=== PATIENT | female | born 1985 | race Caucasian/White ===

== ENCOUNTER 2016-12-22 06:30 | Inpatient (IN) ==
[2016-12-22] MEDS: LACTATED RINGERS 1,000 ML IV SCH ×2 (09:39→10:58)
[2016-12-22] MEDS ORDERED: CITRIC ACID/SODIUM CITRATE 30 ML UDCUP PO ONE (09:41)
[2016-12-22] MEDS ORDERED: ceFAZolin 2,000 MG in PREMIX 1 EACH IV ONE (09:41)
[2016-12-22] MEDS ORDERED: diphenhydrAMINE 50 MG/1 ML VIAL IV PRN (09:43)
[2016-12-22] MEDS ORDERED: PROMETHAZINE 25 MG/1 ML VIAL IM PRN (09:43)
[2016-12-22] MEDS ORDERED: FAMOTIDINE 20 MG/2 ML VIAL IV ONE (09:43)
[2016-12-22] MEDS ORDERED: hydrOXYzine HCL 25 MG/1 ML VIAL IM PRN (09:43)
[2016-12-22] MEDS ORDERED: CLINDAMYCIN INJ 900 MG in PREMIX 1 EACH IV ONE (09:44)
[2016-12-22 10:29] LABS: Basophils % 0.3 % (0.0-0.8); Eosinophils # 0.1 10*3/uL (0.0-0.87); Eosinophils % 0.4 % (0.00-10.9); Hematocrit 33.8 VOL% (35.7-47.0); Hemoglobin 12.2 GM/DL (12.0-16.0); Immature Granulocytes % 2.4 %; Immature Granulocytes Absolute 0.28 #; Lymphocytes # 3.2 10*3/uL (1.4-4.0); Mean Corpuscular HGB Conc 36.1 GM/DL (32-36); Mean Corpuscular Hemoglobin 32 PG (27-34); Mean Corpuscular Volume 88.3 FL (87-102); Mean Platelet Volume 11.4 FL (9.6-12.0); Monocytes # 0.6 10*3/uL (0.11-0.8); Monocytes % 5.2 % (1.7-12.7); Neutrophils # 7.6 10*3/uL (1.4-7.4); Neutrophils % 64.7 % (38.7-73.9); Platelet Count 181 T/CUMM (130-400); Red Blood Count 3.83 MC/CUMM (3.8-5.5); Red Cell Distribution Width 13.6 % (9.3-17.3); White Blood Count 11.8 T/CUMM (4-12)
[2016-12-22] MEDS ORDERED: OXYTOCIN/LR 20 UNIT/1,000 ML BAG IV ONE ×2 (10:52→12:02)
[2016-12-22 11:05] LABS: Alanine Aminotransferase 12 U/L (13-56); Albumin 3.1 G/DL (3.4-5.0); Alkaline Phosphatase 215 U/L (45-117); Aspartate Amino Transferase 18 U/L (0-37); Bilirubin,Total < 0.39 MG/DL (0.2-1.0); Blood Urea Nitrogen 6 MG/DL (7-18); Calcium 8.4 MG/DL (8.5-10.1); Glucose 80 MG/DL (74-106); Osmolality,Calculated 266.1 MOS/KG (273-304); Potassium 3.9 MMOL/L (3.5-5.1); Sodium 135 MMOL/L (136-145); Total Protein 6.2 G/DL (6.4-8.3)
--- NOTE | 2016-12-22 11:57 | OB/GYN History & Physical ---
History of Present Illness Chief complaint: 39 weeks previous elective repeat History of present illness: Ms. Kelley is a 31 year old female 2 para 1 at 39 weeks estimated gestational age previous 1 admitted for elective repeat . The risks benefits and alternatives were explained patient in detail and informed consent obtained and all her questions were answered to her satisfaction Home Medications Medication Instructions Recorded Confirmed Type Ferrous Sulfate [Iron] 325 mg PO DAILY 12/22/16 12/22/16 History Vit No.130/Iron/Folic 1 each PO DAILY 12/22/16 12/22/16 History [ Vitamins] Allergies Allergy/AdvReac Type Severity Reaction Status Date / Time Cefaclor [From Ceclor] Allergy Intermediate Unknown/Unable Verified 12/22/16 09: 40 to obtain 12 point system: reviewed and no additional remarkable complaints except as stated Medical,Surgical,& Family Hx - Medical History Neurology: No history of: Seizures Musculoskeletal: No history of: Amputation Reproductive: No history of: Ectopic , Complication - Surgical History Cardiac Surgeries: Patient Denies: Cardiac Catheterization HEENT Surgeries: Surgical HX of: Tonsilectomy & Adenoidectomy Abdominal Surgeries: Patient denies: Abdominal Surgery Reproductive Surgeries: Surgical HX of;: Section (2013) - Family History Family History: Reports;: Family Cancer (mgm), Family Diabetes (pgm, aunt), Family Stroke (gf) Denies;: Family Anesthesia Reaction, Family Heart Disease, Family Hematology , Family Hypertension, Family Psychiatric Problems - Social History Smoking Status: Former smoker Frequency of Alcohol Use: None Type of Drug Use: None Exam MAINTENANCE TEAM LEADER - Constitutional General appearance: normal weight, no acute distress - Head Head exam: Present: normal inspection, normocephalic, atraumatic - Eye Eye exam: Present: EOMI - Neck Neck exam: Present: normal inspection - Respiratory Respiratory exam: Present: clear to auscultation bilaterally - Breast Breasts: as per HPI Menstruation: as per HPI - Cardiovascular Cardiovascular exam: Present: regular rate and rhythm - GI/Abdominal GI/Abdominal exam: Present: normal bowel sounds - Extremities Exam Extremities exam: Present: normal inspection, normal capillary refill - Back Exam Back exam: Present: normal inspection - Neurological Exam Neurological exam: Present: alert, oriented X3 - Psychiatric Psychiatric exam: Present: normal affect, normal mood - Skin Skin exam: Present: normal color, warm Assessment and Plan (1) with 39 completed weeks gestation Status: Acute Current Visit: Yes (2) Previous section Status: Acute Current Visit: Yes Results - Labs CBC & BMP: 12/22/16 10:18 12/22/16 10:18
[2016-12-22] MEDS ORDERED: ACETAMINOPHEN 325 MG TABLET PO PRN (12:02)
[2016-12-22] MEDS ORDERED: HYDROCORTISONE 2.5% RECTAL CREAM 30 GM TUBE TOP PRN (12:02)
[2016-12-22] MEDS ORDERED: WITCH HAZEL PADS 100/JAR TOP PRN (12:02)
[2016-12-22] MEDS ORDERED: BISACODYL 10 MG SUPP RECTAL PRN (12:02)
[2016-12-22] MEDS ORDERED: ONDANSETRON 4 MG/2 ML VIAL IV PRN (12:02)
[2016-12-22] MEDS ORDERED: BENZOCAINE 20%/MENTHOL 0.5% SPRAY 56 GM CAN TOP PRN (12:02)
[2016-12-22] MEDS ORDERED: oxyCODONE/ACETAMINOPHEN 5-325 MG TABLET PO PRN ×2 (12:02)
[2016-12-22] MEDS ORDERED: LANOLIN 50% CREAM 0.3 OZ TUBE TOP PRN (12:02)
[2016-12-22] MEDS ORDERED: ONDANSETRON 4 MG/2 ML VIAL ONE (12:05)
[2016-12-22] MEDS ORDERED: PHENYLEPHRINE 1 MG/10 ML SYRINGE IV ONE (12:05)
--- NOTE | 2016-12-22 12:58 | Operative Note ---
Date of procedure: 12/22/16 Pre-op diagnosis: Previous IUP 39 weeks elective repeat Post-op diagnosis: same Procedure: This is Dr. Askew dictating operative note: Preoperative diagnosis intrauterine intrauterine at [39] weeks 2. Previous 1 Postoperative diagnosis same Procedure repeat low transverse section Surgeon Dr. Askew Anesthesia spinal Findings liveborn [male] infant 7 pounds 1 ounce Complications none Estimated blood loss 300 mL Disposition patient to recovery room in [stable] condition. Infant to nursery in [stable] condition Operative description: After the risks benefits and alternatives were explained to the patient in detail and informed consent was obtained, the patient was taken to the operating room where she was placed in the supine position. After achieving appropriate anesthesia the abdomen was prepped and draped in the usual sterile fashion. A Aguirre catheter was placed without difficulty. After the appropriate time out and after adequate anesthesia was ascertained a Pfannenstiel skin incision was made and carried down through the subcutaneous tissue down to the fascia. The fascia was nicked in the midportion and undermined and incised both laterally and cephalad using sharp dissection with the curved Robins scissors. 2 [place] clamps were used to elevate the rectus fascia superiorly which was bluntly and sharply dissected away from the rectus muscle below. This was repeated inferiorly. The rectus muscles were then bluntly in the midline the peritoneum identified grasped with 2 curved hemostats and entered sharply using the curved Metzenbaum scissors. A bladder blade was then placed in the pelvis and a bladder flap was created off the lower uterine segment using sharp dissection with the Metzenbaum scissors. The bladder blade was then repositioned. A transverse incision was made across the lower uterine segment down to the amnion. Entry into the amnion revealed [ clear] amniotic fluid. The uterine incision was then extended laterally using bilateral finger fractionation. Upon palpation the presenting part was [vertex ] which was gently elevated out of the pelvis and delivered onto the abdominal wall using appropriate fundal pressure. The infant's nose and oropharynx were bulb and DeLee suctioned and the had spontaneous cry delivery. The cord was doubly clamped and cut and the infant was handed over to the team for care. Cord blood was obtained. The placenta was delivered manually and IV Pitocin antibiotics and Zofran were begun. The uterus was then exteriorized and placed in a wet laparotomy sponge. 2 fingers wrapped around a wet laparotomy sponge were used to remove all residual membranes from the uterine cavity. The uterus was then closed in 2 layers. The first layer of myometrium was closed with #1 Monocryl suture in an inner locking fashion beginning at both angles and overlapping slightly in the midline. The second layer of myometrium was closed with #1 Monocryl suture in a running imbricating stitch beginning at the right angle and continuing the length of the uterine incision. Hemostasis was noted to be excellent. The posterior cul-de-sac was then irrigated and cleansed with a wet laparotomy sponge and the uterus was placed back in the abdominal cavity. Both pericolic gutters were then irrigated and cleansed with a wet lap sponge. The uterine incision was then re-irrigated and again noted to be hemostatic. All counts were noted to be correct. The subcutaneous tissue was then closed using 3-0 Vicryl suture in a running fashion. The subfascial area was made hemostatic using electrocautery and closed with #1 PDS suture in a running fashion beginning at both angles and overlapping slightly in the midline. The subcutaneous tissue was irrigated and made hemostatic using electrocautery and closed with 2-0 Vicryl suture in a running fashion and the skin was closed with wide skin delmis and a sterile pressure bandage was applied to the wound. All sponge needle and instrument counts were correct -3 at the end of the procedure. The patient's urine was [ clear] both at the beginning in the end of the procedure. The patient was taken to the recovery room in stable condition Anesthesia: spinal Surgeon / Physician: Kendall Askew Estimated blood loss: other (300) Specimens: none sent Condition: stable Disposition: floor Results - Labs CBC & BMP: 12/22/16 10:18 12/22/16 10:18 Discharge Plan - Discharge Medications No Action Vit No.130/Iron/Folic [ Vitamins] 1 each PO DAILY Ferrous Sulfate [Iron] 325 mg PO DAILY - Follow Up or Referral - Forms/Instructions
[2016-12-22] MEDS ORDERED: DIPH/TET/ACEL PERT BOOSTER VACCINE 0.5 ML VIAL IM ONE (13:00)
[2016-12-22] MEDS ORDERED: RHO(D) IMMUNE GLOBULIN 300 MCG SYRINGE IM ONE (13:00)
[2016-12-22] MEDS ORDERED: MEASLES/MUMPS/RUBELLA VACCINE 0.5 ML VIAL SUBCUT ONE (13:00)
--- NOTE | 2016-12-22 13:07 | Discharge Summary ---
Hospital Course - Hospital Course Hospital Course: Postoperatively the patient did well. She had quick return of bowel and bladder function. She remained afebrile and normotensive throughout her hospitalization. She is consequently discharged on postoperative day #2 on a regular diet. Her discharge medication included Percocet for pain. She was given bleeding and infection cautions instructed maintain pelvic rest and limited activity and instructed to return office in 1 week for follow-up Diagnosis - Discharge Diagnosis (1) with 39 completed weeks gestation Status: Acute (2) Previous section Status: Acute Discharge Plan - Discharge Data Disposition: Disch To Home/Self Care Condition at Discharge: Stable Discharge Diet: advance to your usual diet Activity: increase activity as tolerated, no lifting, other (Pelvic rest) Hygiene: may shower Weight Bearing at Discharge: full weight bearing Driving: not until seen by doctor Contact your physician if you experience:: fever over 101, Difficulty voiding, Redness or swelling, Nausea/Vomiting, Shortness of breath, Bleeding, pain uncontrolled by pain medications - Discharge Medications New Ibuprofen Tab [Motrin Tab] 800 mg PO Q6H PRN tablet PRN Reason: Pain Moderate (4-7) oxyCODONE/ACETAMINOPHEN 5-325 [Percocet 5-325] 1 tablet PO Q6H PRN #20 tablet PRN Reason: Pain Severe (8-10) Continue Vit No.130/Iron/Folic [ Tablet] 1 each PO DAILY Ferrous Sulfate [Iron] 325 mg PO DAILY - Follow Up or Referral Follow Up: Kendall Askew MD [Physician] - 2 Weeks - Forms/Instructions Discharge Results Procedures and tests throughout hospitalization: Pending Orders 12/22/16 12:43 UA [Urinalysis] Stat 12/23/16 04:00 Comp Blood Count Auto Diff IN AM Labs on day of discharge: Labs from last 24 hours 12/22/16 12/22/16 12/22/16 10:18 10:18 10:18 WBC RBC Hgb Hct MCV MCH MCHC RDW Plt Count MPV Neut % (Auto) Lymph % (Auto) [place] % (Auto) Eos % (Auto) Baso % (Auto) Neut # (Auto) Lymph # (Auto) [place] # (Auto) Eos # (Auto) Baso # (Auto) Immature Gran % Nucleated RBC % Immature Gran # Nucleated RBCs # Sodium 135 L Potassium 3.9 Chloride 103 Carbon Dioxide 20 L Anion Gap 15.9 H BUN 6 L Creatinine 0.70 GFR Calculation 106 BUN/Creatinine Ratio 8.00 Glucose 80 Calculated Osmolality 266.1 L Calcium 8.4 L Total Bilirubin < 0.39 AST 18 ALT 12 L Alkaline Phosphatase 215 H Total Protein 6.2 L Albumin 3.1 L Globulin 3.1 Albumin/Globulin Ratio 1.0 L Treponema pallidum IgG Nonreactive Blood Type A POSITIVE Antibody Screen Negative 12/22/16 10:18 WBC 11.8 RBC 3.83 Hgb 12.2 Hct 33.8 L MCV 88.3 MCH 32 MCHC 36.1 H RDW 13.6 Plt Count 181 MPV 11.4 Neut % (Auto) 64.7 Lymph % (Auto) 27.0 [place] % (Auto) 5.2 Eos % (Auto) 0.4 Baso % (Auto) 0.3 Neut # (Auto) 7.6 H Lymph # (Auto) 3.2 [place] # (Auto) 0.6 Eos # (Auto) 0.1 Baso # (Auto) 0.0 Immature Gran % 2.4 Nucleated RBC % 0.0 Immature Gran # 0.28 Nucleated RBCs # 0.00 Sodium Potassium Chloride Carbon Dioxide Anion Gap BUN Creatinine GFR Calculation BUN/Creatinine Ratio Glucose Calculated Osmolality Calcium Total Bilirubin AST ALT Alkaline Phosphatase Total Protein Albumin Globulin Albumin/Globulin Ratio Treponema pallidum IgG Blood Type Antibody Screen DS: Provider Date of admission: 12/22/16 08:43 Primary care physician: Kwabena Berg DO Attending physician on admission: Lubna Fuchs Consults: 12/22/16 09:41 Consult to Anesthesiology [CONS] Routine Consulting Provider: Reason for Anesthesiology: Pre-op Clearance 12/22/16 12:02 Consult to Energy Conservation Engineer [CONS] Routine Consult Energy Conservation Engineer: Breast Feeding Discharging clinician: Lubna Fuchs Expected date of discharge: 12/24/16
[2016-12-22] MEDS ORDERED: fentaNYL 100 MCG/2 ML VIAL ONE (13:08)
[2016-12-22] MEDS ORDERED: MORPHINE 10 MG/10 ML VIAL ONE (13:09)
--- NOTE | 2016-12-22 13:14 | Anesthesia Post-Op ---
Anesthesia Post OP - Post Ansesthetic Evaluation Patient seen in post op: Yes Resp: within normal limits CV: within normal limits Mental: within normal limits Temp: within normal limits Ezel-Iw-Pxtaeceaq: within normal limits Nausea and Vomiting: within normal limits Pain: within normal limits
[2016-12-22 14:01] LABS: Apearance,Urine CLEAR (Clear); Bacteria,Urine Occasional /HPF (Few); Bilirubin,Urine Negative (Negative); Blood, Urine Small mg/dL (Negative); Glucose,Urine (UA) Negative (Negative); Ketones,Urine 5 mg/dL (Negative); Nitrite,Urine Negative (Negative); Protein,Urine Negative; RBC,Urine <1 /HPF (0-4); Squamous Epithelial Cell,Urine Occasional /HPF (0-10); Urine Color Colorless (Yellow); Urine Specific Gravity 1.002 (1.001-1.035); Urine Urobilinogen < 2.0 EU/DL (0.2-1.0); WBC,Urine <1 /HPF (0-6)
[2016-12-22] MEDS: CLINDAMYCIN INJ 900 MG in PREMIX 1 EACH IV SCH (21:50)
[2016-12-23] MEDS: DOCUSATE SODIUM 100 MG CAPSULE PO SCH ×3 (00:35→20:30)
[2016-12-23] MEDS: CLINDAMYCIN INJ 900 MG in PREMIX 1 EACH IV SCH ×2 (04:45→08:40)
[2016-12-23] MEDS: IBUPROFEN 800 MG TABLET PO PRN ×3 (06:17→20:30)
--- NOTE | 2016-12-23 06:25 | OB/GYN Progress Note ---
Assessment and Plan (1) with 39 completed weeks gestation Status: Acute Current Visit: Yes (2) Previous section Status: Acute Current Visit: Yes RETORT PRE COOKER - PN: Subj Interval history: Patient is doing well. She is tolerating her diet. She is alert and oriented -3 Cardiovascular regular rate and rhythm Lungs clear to auscultation Abdomen soft with appropriate tenderness and bowel sounds are present and her incision is dry no bleeding Is good refill HEENT shows pink conjunctiva assessment 1 day of surgery doing well Plan continue present management with expected DC in a.m. Exam RETORT PRE COOKER - Constitutional Vitals: Vital Signs Temp Pulse Resp BP Pulse Ox 12/23/16 04:00 97.6 F 79 18 106/79 98 12/23/16 02:00 18 12/23/16 00:00 97.3 F L 66 18 123/78 98 12/22/16 20:00 97.6 F 73 20 106/68 97 12/22/16 16:30 97.7 F 69 20 121/77 98 Results - Labs CBC & BMP: 12/22/16 10:18 12/22/16 10:18
[2016-12-23 06:56] LABS: Basophils % 0.3 % (0.0-0.8); Eosinophils # 0.1 10*3/uL (0.0-0.87); Eosinophils % 0.9 % (0.00-10.9); Hematocrit 31.4 VOL% (35.7-47.0); Hemoglobin 10.9 GM/DL (12.0-16.0); Immature Granulocytes % 1.7 %; Immature Granulocytes Absolute 0.22 #; Lymphocytes # 2.8 10*3/uL (1.4-4.0); Mean Corpuscular HGB Conc 34.7 GM/DL (32-36); Mean Corpuscular Hemoglobin 31 PG (27-34); Mean Platelet Volume 10.3 FL (9.6-12.0); Monocytes # 0.7 10*3/uL (0.11-0.8); Monocytes % 5.4 % (1.7-12.7); Neutrophils # 9.4 10*3/uL (1.4-7.4); Neutrophils % 70.7 % (38.7-73.9); Platelet Count 158 T/CUMM (130-400); Red Blood Count 3.53 MC/CUMM (3.8-5.5); White Blood Count 13.3 T/CUMM (4-12)
--- NOTE | 2016-12-23 07:29 | OB/GYN Progress Note ---
Assessment and Plan (1) Previous section Status: Acute Assessment and plan: POD#1 s/p repeat . doing well . conitnue routine post op/PP care Current Visit: Yes CHIROPRACTOR ASSISTANT - PN: Subj Interval history: the pt has no complaints this morning . She may decide to have the baby's circumcision done today but she will let me know at a later time Exam CHIROPRACTOR ASSISTANT - Constitutional Vitals: Vital Signs Temp Pulse Resp BP Pulse Ox 12/23/16 04:00 97.6 F 79 18 106/79 98 12/23/16 02:00 18 12/23/16 00:00 97.3 F L 66 18 123/78 98 12/22/16 20:00 97.6 F 73 20 106/68 97 12/22/16 16:30 97.7 F 69 20 121/77 98 General appearance: normal weight, no acute distress - Respiratory Respiratory exam: Absent: accessory muscle use - Cardiovascular Cardiovascular exam: Present: regular rate and rhythm - GI/Abdominal GI/Abdominal exam: Present: tenderness, soft. Absent: guarding, rebound - Extremities Exam Extremities exam: Absent: calf tenderness - Neurological Exam Neurological exam: Present: alert, oriented X3 - Psychiatric Psychiatric exam: Present: normal affect, normal mood Results - Labs CBC & BMP: 12/23/16 06:42 12/22/16 10:18
[2016-12-23] MEDS: MULTIVITAMIN (PRENATAL) TABLET PO SCH (08:40)
[2016-12-23] MEDS: FERROUS SULFATE 325 MG TABLET PO SCH (08:40)
[2016-12-23] MEDS: MAGNESIUM HYDROXIDE SUSP 30 ML UDCUP PO PRN ×2 (15:46→22:15)
[2016-12-23] MEDS: SIMETHICONE CHEW 80 MG TABLET PO PRN (20:30)
[2016-12-24] MEDS: IBUPROFEN 800 MG TABLET PO PRN (05:15)
[2016-12-24] MEDS: SIMETHICONE CHEW 80 MG TABLET PO PRN (05:20)
[2016-12-24 07:58] VITALS: BP 108/75
[2016-12-24] MEDS: MULTIVITAMIN (PRENATAL) TABLET PO SCH (08:56)
[2016-12-24] MEDS: DOCUSATE SODIUM 100 MG CAPSULE PO SCH (08:56)
[2016-12-24] MEDS: FERROUS SULFATE 325 MG TABLET PO SCH (08:56)
== END 2016-12-24 10:15 | disposition home or self-care (01) | DRG 766 ==
LOC: N.LD 08:43 → N.OB 15:59
PROVIDERS: ADMIT Specialist; ATTEND Specialist
PROC: LDCSECT (ICD-10-PCS; 2016-12-22 12:30)